=== PATIENT | female | born 1955 | race Caucasian/White ===

== ENCOUNTER 2020-10-08 12:13 | Day surgery (SDC) | payer MEDICARE ==
[~2020-10-08] VITALS: Ht 162.6 cm; Wt 111.6 kg
[~2020-10-08 12:13] MED LIST: ALBU90OI6; ALBU90OI61 INH; ALPR1 PO; AMLO10 PO; AMLO5; Adipex-P37.5 MG PO; Advair Hfa 230-12 GM; BELSOMRA10 MG; Bupropion Xl150 MG PO; CYCL10 PO; FLUO20; FLUO20 PO; FLUSAL1005 INH; FLUT1DIS2 INH; FOLI400 PO; FURO20 PO; HYDACE5 PO; LEVO-T88 MC1 PO; LEVSOD100 PO; LEVSOD25; LEVSOD50; LEVSOD88 PO; LISI5 PO; Lamictal200 MG PO; MELO7.5 PO; MOMENI; MONT10T PO; MULVITMINE; OMEP20ER; OMEP20ER PO; PRED10 PO; PROAIR DIGIHAL90 MCG INH; PROZAC20 MG PO; Prozac20 MG PO; QUET25 PO; QUET300; SUCR1 PO; Seroquel Xr50 MG PO; Synthroid112 MCG PO; TRAM50; VITAMIN D33000 UNI1 PO
== END 2020-10-08 14:57 | disposition home or self-care (01) ==
LOC: ORSCSDS 12:13
PROVIDERS: Internal Medicine Gastroenterology
PROC: 0DBN8ZX Excision of Sigmoid Colon, Via Natural or Artificial Opening Endoscopic, Diagnostic (ICD-10-PCS; principal; 2020-10-08 14:45)
PROC: 0DBM8ZX Excision of Descending Colon, Via Natural or Artificial Opening Endoscopic, Diagnostic (ICD-10-PCS; principal; 2020-10-08 14:45)
PROC: 0DBL8ZX Excision of Transverse Colon, Via Natural or Artificial Opening Endoscopic, Diagnostic (ICD-10-PCS; principal; 2020-10-08 14:45)
DX: Z12.11 Encounter for screening for malignant neoplasm of colon (principal); Z86.010 Personal history of colon polyps; D12.5 Benign neoplasm of sigmoid colon; D12.3 Benign neoplasm of transverse colon; D12.4 Benign neoplasm of descending colon; K57.30 Diverticulosis of large intestine without perforation or abscess without bleeding; K64.8 Other hemorrhoids; G47.33 Obstructive sleep apnea (adult) (pediatric); I10 Essential (primary) hypertension; E78.00 Pure hypercholesterolemia, unspecified; E03.9 Hypothyroidism, unspecified; F43.10 Post-traumatic stress disorder, unspecified; Z98.84 Bariatric surgery status; J45.909 Unspecified asthma, uncomplicated; F32.9 Major depressive disorder, single episode, unspecified; E66.01 Morbid (severe) obesity due to excess calories; Z68.41 Body mass index [BMI] 40.0-44.9, adult; Z79.899 Other long term (current) drug therapy
CPT/HCPCS: 88305; J2704; J7120

== ENCOUNTER 2022-01-17 09:17 | Day surgery (SDC) | payer MEDICARE ==
[~2022-01-17] VITALS: Ht 162.6 cm; Wt 87.4 kg
[2022-01-17] MEDS ORDERED: ESCI10 PO (09:43)
== END 2022-01-17 11:45 | disposition home or self-care (01) ==
LOC: ORSCSDS 09:17
PROVIDERS: Internal Medicine Gastroenterology
PROC: 0DJD8ZZ Inspection of Lower Intestinal Tract, Via Natural or Artificial Opening Endoscopic (ICD-10-PCS; principal; 2022-01-17 10:45)
DX: Z12.11 Encounter for screening for malignant neoplasm of colon (principal); Z86.010 Personal history of colon polyps; K64.8 Other hemorrhoids; I10 Essential (primary) hypertension; G47.33 Obstructive sleep apnea (adult) (pediatric); J45.909 Unspecified asthma, uncomplicated; E66.9 Obesity, unspecified; Z68.33 Body mass index [BMI] 33.0-33.9, adult; Z98.84 Bariatric surgery status; Z87.11 Personal history of peptic ulcer disease; E78.00 Pure hypercholesterolemia, unspecified; E03.9 Hypothyroidism, unspecified; F43.10 Post-traumatic stress disorder, unspecified; Z79.899 Other long term (current) drug therapy
CPT/HCPCS: J2704; J7120

== ENCOUNTER 2025-05-26 12:29 | Day surgery (SDC) | payer OTHER ==
[~2025-05-26] VITALS: Ht 162.6 cm; Wt 113.1 kg
[~2025-05-26 12:29] MED LIST changes: +ESCI10 PO; +Glycopyrrolate 0.2 MG/ML 1MLVIAL ONE; +Ondansetron HCl 2 MG / ML 2ML Vial ONE; +ePHEDrine Sulfate 50 MG/ML 1ML Injection ONE
[2025-05-26] MEDS ORDERED: Prozac20 MG (12:58)
--- NOTE | 2025-05-26 13:56 | NUR ---
05/26/25 1353 CAROL WINSLOW DAUGHTER AT BEDSIDE
[2025-05-26 14:47] VITALS: BP 115/50
== END 2025-05-26 14:54 | disposition home or self-care (01) ==
LOC: ORSCSDS 12:29
PROVIDERS: Specialist
PROC: 0DJD8ZZ Inspection of Lower Intestinal Tract, Via Natural or Artificial Opening Endoscopic (ICD-10-PCS; principal; 2025-05-26 14:30)
DX: Z12.11 Encounter for screening for malignant neoplasm of colon (principal); K64.8 Other hemorrhoids; Z86.0100 Personal history of colon polyps, unspecified; I10 Essential (primary) hypertension; E78.5 Hyperlipidemia, unspecified; G47.33 Obstructive sleep apnea (adult) (pediatric); E07.9 Disorder of thyroid, unspecified; E66.9 Obesity, unspecified; Z68.41 Body mass index [BMI] 40.0-44.9, adult; Z79.899 Other long term (current) drug therapy
CPT/HCPCS: J0461; J2003; J2405; J2704; J7120